=== PATIENT | male | born 1990 | race Caucasian/White ===

== ENCOUNTER 2018-07-13 11:19 | Observation (INO) ==
[2018-07-13 13:40] LABS: Basophils # 0.1 10*3/uL (0.0-0.2); Eosinophils # 0.1 10*3/uL (0.0-0.87); Eosinophils % 1.1 % (0.00-10.9); Hemoglobin 14.9 GM/DL (14.0-18.0); Immature Granulocytes % 0.2 %; Immature Granulocytes Absolute 0.01 #; Lymphocytes # 1.3 10*3/uL (1.4-4.0); Lymphocytes % 21.3 % (21.2-54.2); Mean Corpuscular HGB Conc 34.7 GM/DL (32-36); Mean Corpuscular Hemoglobin 30 PG (27-34); Mean Corpuscular Volume 85.8 FL (87-102); Mean Platelet Volume 9.3 FL (9.6-12.0); Monocytes # 0.4 10*3/uL (0.11-0.8); Monocytes % 7.1 % (1.7-12.7); Neutrophils # 4.2 10*3/uL (1.4-7.4); Neutrophils % 69.3 % (38.7-73.9); Platelet Count 333 T/CUMM (130-400); Red Blood Count 5.01 MC/CUMM (3.8-5.5); Red Cell Distribution Width 12.1 % (9.3-17.3); White Blood Count 6.1 T/CUMM (4-12)
[2018-07-13 14:02] LABS: Albumin 4.3 G/DL (3.4-5.0); Bilirubin,Total 0.4 MG/DL (0.2-1.0); Calcium 9.1 MG/DL (8.5-10.1); Osmolality,Calculated 284.8 MOS/KG (273-304); Potassium 3.6 MMOL/L (3.5-5.1); Total Protein 7.9 G/DL (6.4-8.3)
[2018-07-13] MEDS ORDERED: ONDANSETRON 4 MG/2 ML VIAL IV PRN (15:06)
[2018-07-13] MEDS: predniSONE 20 MG TABLET PO SCH (20:35)
[2018-07-13] MEDS: ZALEPLON 5 MG CAPSULE PO PRN (20:36)
[2018-07-14 05:30] LABS: Basophils % 0.3 % (0.0-0.8); Hematocrit 43.4 VOL% (42.0-52.0); Hemoglobin 14.4 GM/DL (14.0-18.0); Immature Granulocytes % 0.6 %; Immature Granulocytes Absolute 0.04 #; Lymphocytes # 0.7 10*3/uL (1.4-4.0); Lymphocytes % 10.2 % (21.2-54.2); Mean Corpuscular HGB Conc 33.2 GM/DL (32-36); Mean Corpuscular Hemoglobin 29 PG (27-34); Mean Corpuscular Volume 86.5 FL (87-102); Mean Platelet Volume 9.8 FL (9.6-12.0); Monocytes # 0.1 10*3/uL (0.11-0.8); Monocytes % 1.3 % (1.7-12.7); Neutrophils # 6.3 10*3/uL (1.4-7.4); Neutrophils % 87.6 % (38.7-73.9); Platelet Count 337 T/CUMM (130-400); Red Blood Count 5.02 MC/CUMM (3.8-5.5); Red Cell Distribution Width 12.1 % (9.3-17.3); White Blood Count 7.1 T/CUMM (4-12)
[2018-07-14 05:53] LABS: Calcium 9.1 MG/DL (8.5-10.1); Osmolality,Calculated 280.4 MOS/KG (273-304); Potassium 4.8 MMOL/L (3.5-5.1); Thyroid Stimulating Hormone 0.319 uIU/ml (0.358-3.74)
[2018-07-14] MEDS: PANTOPRAZOLE 40 MG TABLET PO SCH (08:19)
[2018-07-14] MEDS: predniSONE 20 MG TABLET PO SCH (08:19)
[2018-07-14] MEDS: CITALOPRAM 20 MG TABLET PO SCH (08:21)
[2018-07-14] MEDS: ACETAMINOPHEN 325 MG TABLET PO PRN ×2 (09:41→17:44)
[2018-07-14] MEDS ORDERED: methylPREDNISolone SOD SUC 40 MG/1 ML VIAL IV ONE (16:38)
[2018-07-14] MEDS: GABAPENTIN 100 MG CAPSULE PO SCH (20:45)
[2018-07-14] MEDS: ZALEPLON 5 MG CAPSULE PO PRN (20:45)
[2018-07-15] MEDS: CITALOPRAM 20 MG TABLET PO SCH (08:37)
[2018-07-15] MEDS: PANTOPRAZOLE 40 MG TABLET PO SCH (08:38)
[2018-07-15] MEDS: GABAPENTIN 100 MG CAPSULE PO SCH (08:38)
[2018-07-15] MEDS ORDERED: predniSONE 20 MG TABLET PO SCH (09:00)
[2018-07-15 11:55] VITALS: BP 128/79
== END 2018-07-15 12:18 | disposition home or self-care (01) ==
LOC: N.ED 11:19 → N.EDINP 11:19 → N.4E 16:44
PROVIDERS: ADMIT Internal Medicine; ATTEND Internal Medicine